=== PATIENT | female | born 1985 | race Caucasian/White ===

== ENCOUNTER 2018-02-16 23:51 | Emergency (ER) | payer OTHER ==
[2018-02-17] MEDS ORDERED: TYLENOL PO ONE (00:30)
[2018-02-17] MEDS ORDERED: TYLENOL ONE (00:36)
[2018-02-17 01:30] LABS: Basophils % (Auto) 0.3 % (0.0-1.8); Eosinophils # (Auto) 0.1 K/mm3 (0.0-0.4); Eosinophils % (Auto) 0.6 % (0.0-4.3); Hematocrit 37.2 % (30.3-42.9); Hemoglobin 12.5 gm/dl (10.1-14.3); Lymphocytes # (Auto) 1.6 K/mm3 (1.2-5.4); Lymphocytes % (Auto) 13.5 % (13.4-35.0); Mean Corpuscular HGB Conc 34 % (30-34); Mean Corpuscular Volume 95 fl (79-97); Monocytes # (Auto) 0.8 K/mm3 (0.0-0.8); Monocytes % (Auto) 6.6 % (0.0-7.3); Platelet Count 215 K/mm3 (140-440); Red Blood Count 3.92 M/mm3 (3.65-5.03); Red Cell Distribution Width 13.6 % (13.2-15.2)
[2018-02-17 01:53] LABS: Alanine Aminotransferase 20 units/L (7-56); Albumin 4.4 g/dL (3.9-5); BUN/Creatinine Ratio 18; Blood Urea Nitrogen 7 mg/dL (7-17); Calcium 9.4 mg/dL (8.4-10.2); Hemolysis Index 16
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
[2018-02-17 03:29] LABS: Bilirubin,Urine NEG (Negative); Blood,Urine NEG (Negative); Color,Urine Yellow (Yellow); Mucus,Urine FEW /HPF; Protein,Urine <15 mg/dL mg/dL (Negative); Urobilinogen,Urine < 2.0 mg/dL (<2.0)
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
[2018-02-17 07:13] VITALS: BP 99/61
== END 2018-02-17 07:08 ==
LOC: ED 23:51
DX: O9A.211 Injury, poisoning and certain other consequences of external causes complicating pregnancy, first trimester (principal); S16.1XXA Strain of muscle, fascia and tendon at neck level, initial encounter; Z3A.09 9 weeks gestation of pregnancy; V87.7XXA Person injured in collision between other specified motor vehicles (traffic), initial encounter; Y93.89 Activity, other specified; Y92.488 Other paved roadways as the place of occurrence of the external cause; Y99.8 Other external cause status
CPT/HCPCS: 36415; 72040; 76801; 80053; 81001; 84702; 85025; 99285

== ENCOUNTER 2018-09-13 05:31 | Inpatient (IN) | payer OTHER ==
[2018-09-13] MEDS ORDERED: MINERAL OIL PO PRN (05:48)
[2018-09-13] MEDS ORDERED: STADOL IV PRN (05:48)
[2018-09-13] MEDS ORDERED: SUBLIMAZE IV PRN (05:48)
[2018-09-13] MEDS ORDERED: BRETHINE SUB-Q PRN (05:48)
[2018-09-13] MEDS ORDERED: XYLOCAINE 2% INFILTRATI ONE (05:48)
[2018-09-13] MEDS ORDERED: BRETHINE IVP PRN (05:48)
[2018-09-13] MEDS ORDERED: PITOCin/NS 20 UNIT/1000ML DRIP 20 UNITS/1,000 ML BAG IV SCH (06:00)
[2018-09-13 06:47] LABS: Hematocrit 34.3 % (30.3-42.9); Hemoglobin 11.3 gm/dl (10.1-14.3); Mean Corpuscular HGB Conc 33 % (30-34); Mean Corpuscular Volume 90 fl (79-97); Platelet Count 182 K/mm3 (140-440); Red Blood Count 3.81 M/mm3 (3.65-5.03); Red Cell Distribution Width 15.1 % (13.2-15.2)
[2018-09-13] MEDS: LACTATED RINGERS 1,000 ML IV SCH ×2 (07:01→09:42)
[2018-09-13] MEDS ORDERED: MARCAINE 0.25% INFILTRATI ONE (08:13)
[2018-09-13] MEDS ORDERED: NARCAN 2 MG/2 ML IV PRN (08:26)
--- NOTE | 2018-09-13 08:26 | Anesthesia Consultation ---
Anesthesia Consult and Med Hx Date of service: 09/13/18 - Airway Anesthetic Teeth Evaluation: Good ROM Head & Neck: Adequate Mental/Hyoid Distance: Adequate Mallampati Class: Class II Intubation Access Assessment: Good - Pulmonary Exam CTA: Yes - Cardiac Exam Cardiac Exam: RRR - Pre-Operative Health Status ASA Pre-Surgery Classification: ASA2, Emergency Proposed Anesthetic Plan: Epidural - Pulmonary Hx Asthma: No COPD: No Hx Pneumonia: No - Cardiovascular System Hx Hypertension: No - Central Nervous System Hx Seizures: No Hx Psychiatric Problems: No - Endocrine Hx Renal Disease: No Hx End Stage Renal Disease: No Hx Non-Insulin Dependent Diabetes: Yes Hx Hypothyroidism: No Hx Hyperthyroidism: No - Hematic Hx Anemia: No Hx Sickle Cell Disease: No - Other Systems Hx Alcohol Use: No
[2018-09-13] MEDS ORDERED: fentaNYL-BUPIV 2 MCG/ML-0.125% 200 MCG/100 ML BAG EPIDURAL SCH (09:00)
--- NOTE | 2018-09-13 09:11 | History and Physical Report ---
History of Present Illness Date of examination: 09/13/18 Date of admission: 09/13/18 Chief complaint: Contractions History of present illness: 33yo G 5 P 4 0 0 4 at 39 weeks 1 day with complaint of contractions that started on 09/12/18 @ 2300. She also reports spotting and positive movements but denies LOF. She is a [facility] pt who initiated care at 10 weeks gestation. records are available and reviewed. Her course has been unremarkable. LABS: Opos, Antibody Screen neg, VDRL NR, RI, HBsAg NR, HIV neg, GC/CT neg, GBS neg Past History Past Medical History: no pertinent history Past Surgical History: no surgical history Family/Genetic History: none Social history: , lives with family, full code. denies: smoking, alcohol abuse, prescription drug abuse, IV drug use - Obstetrical History Expected Date of Delivery: 09/19/18 Actual Gestation: 39 Week(s) 1 Day(s) : 5 Para: 4 Hx # Term Pregnancies: 4 Number of Pregnancies: 0 Spontaneous Abortions: 0 Induced : 0 Number of Living Children: 4 #1 Gender: Male year: 2,[birth year] Birthweight: 3.175 kg (7 lbs) Method of Delivery: Vaginal Gestational age at delivery: 40 Complications: none #2 Infant Gender: Female year: 2,007 Birthweight: 6 kg (6 lbs) Method of Delivery: Vaginal Gestational age at delivery: 40 Complications: none #3 Infant Gender: Male year: 2,008 Birthweight: 2.722 kg (6 lbs) Method of Delivery: Vaginal Gestational age at delivery: 40 Complications: none #4 Infant Gender: Female year: 2,016 Birthweight: 2.722 kg Method of Delivery: Vaginal Gestational age at delivery: 40 Complications: none Medications and Allergies Allergies Allergy/AdvReac Type Severity Reaction Status Date / Time No Known Allergies Allergy Verified 09/13/18 05:47 Home Medications Medication Instructions Recorded Confirmed Last Taken Type Acetaminophen [Tylenol] 650 mg PO QID PRN #30 capsule 02/17/18 Unknown Rx Menthol/Camphor [[place] 1 applicatio TP TID PRN #1 tube 02/17/18 Unknown Rx Ointment] Active Meds: Active Medications Butorphanol Tartrate (Stadol) 2 mg IV Q2H PRN PRN Reason: Pain , Severe (7-10) Ephedrine Sulfate (Ephedrine Sulfate) 10 mg IV Q2M PRN PRN Reason: Hypotension Ephedrine Sulfate (Ephedrine Sulfate) 10 mg IV Q2M PRN PRN Reason: Hypotension Fentanyl (Sublimaze) 100 mcg IV Q2H PRN PRN Reason: Labor Pain Last Admin: 09/13/18 07:01 Dose: 100 mcg Documented by: Oxytocin/Sodium Chloride (Pitocin/Ns 20 Unit/1000ml Drip) 20 units in 1,000 mls @ 125 mls/hr IV DIRECT GERARD Lactated Ringer's (Lactated Ringers) 1,000 mls @ 125 mls/hr IV DIRECT GERARD Last Admin: 09/13/18 07:01 Dose: 125 mls/hr Documented by: Fentanyl/Bupivacaine/Sodium Chlor (Fentanyl-Bupiv 2 Mcg/Ml-0.125%) 200 mcg in 100 mls @ 12 mls/hr EPIDURAL TITR GERARD; Protocol Oxytocin/Sodium Chloride (Pitocin/Ns 30 Unit/500ml) 30 units in 500 mls @ 0 mls/hr IV TITR GERARD; Protocol Mineral Oil (Mineral Oil) 30 ml PO QHS PRN PRN Reason: Constipation Naloxone HCl (Narcan 2 Mg/2 Ml) 0.2 mg IV Q5M PRN PRN Reason: Respiratory sedation Terbutaline Sulfate (Brethine) 0.25 mg SUB-Q ONCE PRN PRN Reason: Hyperstimulation/Hypertonicity Terbutaline Sulfate ([place]ine) 0.25 mg IVP ONCE PRN PRN Reason: Hyperstimulation/Hypertonicity Review of Systems All systems: negative - Vital Signs Vital signs: Vital Signs Pulse BP 107 H 105/62 09/13/18 05:56 09/13/18 05:56 Temp Pulse Resp BP Pulse Ox 96 H 86/50 97 09/13/18 09:02 09/13/18 09:02 09/13/18 09:02 - Obstetrical FHR: category 2 FHR comments: baseline 140, moderate variability, 15x15 accels, 1 variable decel Cervical Dilatation: 5 (per RN) Cervical Effacement Percentage: 50 (per RN) station: -2 (per RN) Uterine Contraction Pattern: Regular Results Result Diagrams: 08/05/19 06:25 Abnormal lab results 09/13/18 Range/Units 06:25 WBC 11.4 H (4.5-11.0) K/mm3 All other labs normal. Assessment and Plan - Patient Problems (1) 39 weeks gestation of Current Visit: Yes Status: Acute (2) Active labor at term Current Visit: Yes Status: Acute Plan to address problem: Admit to L&D with routine labor orders Start Oxytocin for labor augmentation Anticipate vaginal delivery
[2018-09-13] MEDS: PITOCin/NS 30 UNIT/500ML 30 UNITS/500 ML BAG IV SCH ×3 (09:59→11:57)
--- NOTE | 2018-09-13 13:22 | Procedure Note ---
OB Delivery Note - Delivery Date of Delivery: 09/13/18 (13:00) Surgeon: NANETTE AWAN (LEAH) Estimated blood loss: 100cc - Vaginal Delivery presentation: vertex Delivery position: OA Intrapartum events: none Delivery induction: none Delivery augmentation: pitocin Delivery monitor: external FHT, external uterine Route of delivery: Delivery placenta: spontaneous (13:08) Delivery cord: 3 umbilical vessels Episiotomy: none Delivery laceration: none Anesthesia: epidural Delivery comments: of a vigorous term 7 lbs 4 oz female on 09/13/18 @ 13:00. Baby placed essm-bo-cluz on maternal abdomen, dried & bulb-suctioned. After 3 mins, umbilical cord double-clamped by Brooke LYNN & cut by daughter. Spontaneous delivery of placenta @ 13:08. Small lochia noted. Fundal massage & IV Pitocin bolus initiated. Fundus F/ML/U. Placenta intact; was discarded. No lacerations noted. Perineum intact. Mom and baby in stable condition. - Infant A at 1 minute: 8 at 5 minutes: 9 Infant Gender: Female (7 lbs 4 oz (3276 gm); 19 in)
[2018-09-13] MEDS ORDERED: BENADRYL PO PRN (13:23)
[2018-09-13] MEDS ORDERED: PHENERGAN PO PRN (13:23)
[2018-09-13] MEDS ORDERED: LANSINOH TP PRN (13:23)
[2018-09-13] MEDS ORDERED: NORCO 5/325 PO PRN (13:23)
[2018-09-13] MEDS ORDERED: ZOFRAN IV PRN (13:23)
[2018-09-13] MEDS ORDERED: PHENERGAN PR PRN (13:23)
[2018-09-13] MEDS ORDERED: MILK OF MAGNESIA PO PRN (13:23)
[2018-09-13] MEDS ORDERED: TUCKS PAD TP PRN (13:23)
[2018-09-13] MEDS ORDERED: DULCOLAX PR PRN (13:23)
[2018-09-13] MEDS ORDERED: TYLENOL PO PRN (13:23)
[2018-09-13] MEDS ORDERED: SODIUM CHLORIDE FLUSH SYRINGE 10 ML IV SCH (14:00)
[2018-09-13] MEDS: IBUPROFEN PO SCH ×2 (17:40→18:00)
[2018-09-14] MEDS: IBUPROFEN PO SCH ×3 (00:21→12:00)
[2018-09-14 06:28] LABS: Hematocrit 31.2 % (30.3-42.9); Hemoglobin 10.4 gm/dl (10.1-14.3)
--- NOTE | 2018-09-14 09:06 | Progress Note ---
Assessment and Plan - Patient Problems (1) (normal spontaneous vaginal delivery) Current Visit: No Status: Acute Plan to address problem: Continue routine PP orders May d/c home later today IF baby is cleared for d/c today (2) Anemia Current Visit: Yes Status: Acute Qualifiers: Anemia type: other cause Other causes of anemia: acute posthemorrhagic Qualified Code(s): D62 - Acute posthemorrhagic anemia Plan to address problem: Asymptomatic Continue daily oral iron supplementation Increase iron rich foods into diet Subjective - Subjective Date of service: 09/14/18 Principal diagnosis: ; Anemia Interval history: See admission H & P and OB delivery summary Patient reports: appetite normal, voiding normally, pain well controlled (with medications), flatus, ambulating normally, other (Desires to go home today. Advised that she may go home later, IF baby is cleared for d/c today. Otherwise, d/c will be tomorrow, verbalized understanding.), no bowel movement : doing well, bottle feeding (and ) Objective - Vital Signs Latest vital signs: Vital Signs Temp Pulse Resp BP BP Pulse Ox 09/14/18 01:03 98.7 F 75 16 98/52 98 09/13/18 20:48 98.9 F 79 20 93/49 95 09/13/18 16:16 98.0 F 69 18 105/52 09/13/18 14:37 78 114/52 09/13/18 14:22 80 120/69 09/13/18 14:07 80 115/62 09/13/18 13:52 103 H 111/57 09/13/18 13:37 94 H 107/53 09/13/18 13:24 86 105/55 09/13/18 13:09 118 H 150/107 09/13/18 12:40 82 99/56 09/13/18 12:24 87 99/57 09/13/18 11:54 131 H 109/58 09/13/18 11:39 107 H 104/55 09/13/18 11:24 112 H 104/61 09/13/18 11:10 82 106/57 09/13/18 10:54 106 H 102/57 09/13/18 10:32 111 H 99 09/13/18 10:26 77 99 09/13/18 10:24 109 H 95/54 09/13/18 10:22 123 H 100 09/13/18 10:17 120 H 100 09/13/18 10:12 126 H 99 09/13/18 10:09 113 H 93/51 09/13/18 10:07 118 H 99 09/13/18 10:02 120 H 99 09/13/18 09:57 94 H 100 09/13/18 09:53 81 97/56 09/13/18 09:52 97 H 100 09/13/18 09:51 99 H 98/55 09/13/18 09:49 100 H 104/55 09/13/18 09:47 98.2 F 90 16 106/56 106/56 100 09/13/18 09:45 92 H 92/51 09/13/18 09:43 79 83/47 09/13/18 09:42 92 H 100 09/13/18 09:41 81 79/43 09/13/18 09:39 96 H 80/45 09/13/18 09:38 80 82/43 09/13/18 09:37 87 98 09/13/18 09:35 85 71/36 09/13/18 09:33 96 H 70/35 09/13/18 09:32 106 H 99 09/13/18 09:31 106 H 73/39 09/13/18 09:30 97 H 90/42 09/13/18 09:28 67 95/58 09/13/18 09:27 81 96 09/13/18 09:25 77 90/55 09/13/18 09:23 74 95/53 09/13/18 09:22 72 96 09/13/18 09:21 76 90/55 09/13/18 09:19 75 91/51 09/13/18 09:17 83 88/53 96 09/13/18 09:15 79 94/52 09/13/18 09:13 77 85/47 09/13/18 09:12 73 96 09/13/18 09:11 71 90/53 09/13/18 09:09 80 83/47 09/13/18 09:07 86 89/51 96 09/13/18 09:05 99 H 88/44 09/13/18 09:03 78 92/48 09/13/18 09:02 96 H 86/50 97 Intake and Output 09/13/18 09/14/18 09/14/18 23:59 07:59 15:59 Intake Total 480 Output Total 1999 400 Balance -1520 -400 Intake: Oral 480 Output: Urine 1999 400 Void 1999 400 Other: Total, Intake Amount 480 Total, Output Amount 500 400 # Voids Void 1 - Exam Breasts: Present: normal Cardiovascular: Present: Regular rate Lungs: Present: Normal air movement Abdomen: Present: soft, normal bowel sounds Uterus: Present: firm, fundal height below umbilicus (U-1) Extremities: Present: normal, edema (slight edema in left foot) Deep Tendon Reflex Grade: Normal +2
--- NOTE | 2018-09-14 09:13 | Discharge Summary ---
Providers - Providers Date of Admission: 09/13/18 05:32 Date of discharge: 09/14/18 (1700) Attending physician: RIGOBERTO TSANG MD Primary care physician: RIGOBERTO TSANG MD Hospitalization Reason for admission: active labor, IUP at term Delivery: Episiotomy: none Laceration: none Other procedures: none complications: none Discharge diagnosis: IUP at term delivered, other (Anemia) Condition at discharge: Good Disposition: DC-01 TO HOME OR SELFCARE - Discharge Diagnoses (1) (normal spontaneous vaginal delivery) Status: Acute (2) Anemia Status: Acute Qualifiers: Anemia type: other cause Other causes of anemia: acute posthemorrhagic Qualified Code(s): D62 - Acute posthemorrhagic anemia Plan - Discharge Medications Prescriptions: Ferrous Sulfate [Feosol 325 MG tab] 325 mg PO QDAY #30 tablet - Provider Discharge Summary Activity: routine, no sex for 6 weeks, no heavy lifting 4 weeks, no strenuous exercise Diet: other (Increase iron rich foods) Instructions: routine Additional instructions: [] Smoking cessation referral if applicable(refer to patient education folder for contact #) [] Refer to [facility] Booklet Call your doctor immediately for: * Fever > 100.5 * Heavy vaginal bleeding ( >1 pad per hour) * Severe persistent headache * Shortness of breath * Reddened, hot, painful area to leg or breast * Drainage or odor from incision. * Continue daily oral iron supplementation - Follow up plan Follow up: RIGOBERTO TSANG MD [Primary Care Provider] - 6 Weeks
[2018-09-14] MEDS ORDERED: FEOSOL PO SCH (10:00)
[2018-09-14] MEDS ORDERED: PRENATAL VITAMIN PO SCH (10:00)
[2018-09-14 17:24] VITALS: BP 98/47
--- NOTE | 2018-09-14 17:50 | Post Anesthesia Evaluation ---
- Post Anesthesia Evaluation Patient Participated: Yes Airway Patent: Yes Stable Respiratory Function: Yes Nausea/Vomiting: No Temp > 96.8F: Yes Pain Manageable: Yes Adequeate Hydration: Yes Anesthesia Complications: No Block Receding Appropriately: Yes Patient on Ventilator: No
== END 2018-09-14 20:20 | disposition home or self-care (01) | DRG 806 ==
LOC: TRG 05:31 → LD 05:32 → TRG 05:32 → LD 05:47 → OB 15:18
PROVIDERS: ADMIT Obstetrics & Gynecology; ATTEND Obstetrics & Gynecology
PROC: 10E0XZZ Delivery of Products of Conception, External Approach (ICD-10-PCS; principal; 2018-09-13)
PROC: 3E0R3BZ Introduction of Anesthetic Agent into Spinal Canal, Percutaneous Approach (ICD-10-PCS; 2018-09-13)
PROC: 00HU33Z Insertion of Infusion Device into Spinal Canal, Percutaneous Approach (ICD-10-PCS; 2018-09-13)
DX: O24.92 Unspecified diabetes mellitus in childbirth (principal); D62 Acute posthemorrhagic anemia; Z37.0 Single live birth; O99.02 Anemia complicating childbirth; Z3A.39 39 weeks gestation of pregnancy; Z79.899 Other long term (current) drug therapy
CPT/HCPCS: 36415; 85014; 85018; 85027; 86592; 86850; 86900; 86901; G0378; A6250; J2590; J3010; J7120